=== PATIENT | male | born 1960 | race American Indian/Alaskan Native ===

== ENCOUNTER 2018-11-27 13:50 | Outpatient (CLI) | payer BC ==
--- NOTE | 2018-11-30 09:08 | Vascular Lab Report ---
FINAL REPORT EXAM: US VENOUS DUPLEX LOWER EXTREMITIES BILATERAL HISTORY: Leg Pain TECHNIQUE: Real-time color duplex sonography was performed of the deep venous systems of the bilater al lower extremities and images are submitted for interpretation. PRIORS: None. FINDINGS: Right: There is normal compressibility of the common and superficial femoral veins and the popliteal vein. Normal venous waveforms are demonstrated throughout. No echogenic thrombus is demonstrated. Left: There is normal compressibility of the common and superficial femoral veins and the popliteal v ein. Normal venous waveforms are demonstrated throughout. No echogenic thrombus is demonstrated. IMPRESSION: No evidence of DVT.
== END 2018-11-27 13:51 | disposition home or self-care (01) ==
LOC: US 13:50
PROVIDERS: ATTEND Family Medicine
DX: M79.662 Pain in left lower leg (principal); M79.661 Pain in right lower leg
CPT/HCPCS: 93970